=== PATIENT | male | born 1960 | race Caucasian/White ===

== ENCOUNTER → 2016-07-09 | Outpatient (CLI) | payer OTHER ==
--- NOTE | 2016-07-09 09:51 | Diagnostic Imaging Report ---
INDICATION: Chronic neck and back pain. EXAMINATION: Cervical spine on 07/09/2016. TECHNIQUE: Three views of the cervical spine were performed. FINDINGS: There is normal height and alignment of the cervical vertebral bodies with no fractures or subluxations appreciated. The prevertebral soft tissues appear unremarkable. Increased density adjacent to the inferior endplate at C6 appears well-corticated and is likely chronic. IMPRESSION: No acute abnormality with findings at C6 likely chronic in nature. If there is continued concern, further imaging could be performed. Dictated by: Dictated on workstation # [id number]
--- NOTE | 2016-07-12 09:08 | Diagnostic Imaging Report ---
INDICATION: Chronic neck and back pain. EXAMINATION: 2-view thoracic spine 07/09/2016. FINDINGS: 3 views of the thoracic spine. Mild dextroconvex scoliosis noted. Vertebral body heights appear preserved. No acute osseous abnormality is appreciated although there is some limitation due to overlying structures. IMPRESSION: Minimal scoliotic deformity with no acute osseous abnormality seen. Dictated by: Dictated on workstation # [id number]
== END ==
LOC: RAD 09:13
PROVIDERS: ATTEND Chiropractor
DX: M54.2 Cervicalgia (principal)
CPT/HCPCS: 72040; 72072

== ENCOUNTER → 2016-08-10 | Outpatient (REF) | payer OTHER ==
[2016-08-10 10:45] LABS: ALBUMIN 4.6 g/dL (3.4-5.0); ANION GAP 15.7 MEQ/L (3-15); CALCULATED IONIZED CALCIUM 4.1 mg/dL (3.8-4.6); TOTAL PROTEIN 7.5 g/dL (6.4-8.5)
== END ==
LOC: LAB 09:52
PROVIDERS: ATTEND Family Medicine
DX: I10 Essential (primary) hypertension (principal); Z13.6 Encounter for screening for cardiovascular disorders; Z80.42 Family history of malignant neoplasm of prostate
CPT/HCPCS: 80053; 80061; 84153